=== PATIENT | male | born 1975 | race Caucasian/White ===

== ENCOUNTER 2018-10-16 17:57 | Emergency (ER) | payer BC, OTHER ==
--- NOTE | 2018-10-16 19:11 | EDPHY ---
H & P Stated Complaint: LLE swelling Time Seen by Provider: 10/16/18 18:28 HPI/ROS: CHIEF COMPLAINT: Left leg swelling HISTORY OF PRESENT ILLNESS: 43-year-old male presents with left leg swelling. 4 days ago he took a prolonged plane flight from [facility] to [place]. 2 days ago he rode his mtn bike for a long time and felt fine. He awoke in the middle of the night 2 nights ago after biking with left lower extremity pain. He stood up to go the bathroom and developed severe pain in the left thing and lower leg. When he awoke in the morning, he noticed swelling of the left thigh. The leg swelling persists, despite ibuprofen. Continues to have LLE pain, but has improved throughout the day. Able to walk without problem. No shortness of breath or chest pain. No prior history of VTE. REVIEW OF SYSTEMS: complete 10 point ROS reviewed and is negative except for the noted elements in the HPI - Personal History Current Tetanus/Diphtheria Vaccine: Yes Current Tetanus Diphtheria and Acellular Pertussis (TDAP): Yes - Medical/Surgical History Hx Asthma: No Hx Chronic Respiratory Disease: No Hx Diabetes: No Hx Cardiac Disease: No Hx Renal Disease: No Hx Cirrhosis: No Hx Alcoholism: No Hx HIV/AIDS: No Hx Splenectomy or Spleen Trauma: No - Social History Smoking Status: Former smoker - Physical Exam Exam: General Appearance: Alert, pleasant Eyes: Pupils equal and round, no conjunctival pallor ENT, Mouth: Mucous membranes moist Neck: Normal inspection Respiratory: Lungs are clear to auscultation Cardiovascular: Regular rate and rhythm Neurological: A&O, nonfocal exam Skin: Warm and dry, no rash Extremities: Left lower extremity-knee is held in slight flexion, no joint effusion, mild swelling over the distal thigh, patellar tendon and quadriceps tendon intact, no tenderness over the thigh, knee or leg, able to raise leg off gurney against resistance Psychiatric: Mood and affect normal Constitutional: Initial Vital Signs Temperature (C) 37 C 10/16/18 18:00 Heart Rate 57 L 10/16/18 18:00 Respiratory Rate 16 10/16/18 18:00 Blood Pressure 131/91 H 10/16/18 18:00 O2 Sat (%) 97 10/16/18 18:00 O2 Delivery Mode Room Air Allergies/Adverse Reactions: No Known Allergies Allergy (Unverified 10/16/18 18:00) Home Medications: Medication Instructions Recorded Ibuprofen 10/16/18 Medical Decision Making - Diagnostics Imaging Results: Extremity Venous Study 10/16/18 18:28 Impression: No deep vein thrombosis in the left lower extremity. Results discussed with Dr. Becca Girard at 7:15 PM. Imaging: Discussed imaging studies w/ call center analyst Radiologist ED Course/Re-evaluation: Assessment: left thigh swelling without localized pain. On exam, mild swelling anterior lower thigh, tendons/ligaments intact, knee exam normal x held in slight flexion, ?meiniscus injury. LLE sono negative for DVT. Presentation c/ w soft tissue injury, advise f/u ortho. Pt declines crutches. Departure - Departure Disposition: Home, Routine, Self-Care Clinical Impression: Left leg swelling Condition: Good Instructions: Leg Edema (ED) Additional Instructions: Ibuprofen 600 mg 3 times daily while the pain persists. Referrals: Raymundo Dupont MD [Medical Doctor] - 3-4 days, if not improved
[2018-10-16 19:44] VITALS: BP 124/82
== END 2018-10-16 19:43 | disposition home or self-care (01) ==
DX: R22.42 Localized swelling, mass and lump, left lower limb (principal); Z87.891 Personal history of nicotine dependence